=== PATIENT | female | born 1965 | race Caucasian/White ===

== ENCOUNTER → 2019-08-23 15:52 | Outpatient (CLI) | payer OTHER ==
[2015-11-15 06:03] VITALS: BMI 28.4
[~2019-08-23 15:52] MED LIST: BAYER CHEWABLE81 MG PO; GABAPENTIN100 MG PO; GLIPIZIDE10 MG PO; GLUCOPHAGE1000 MG PO; IBUPROFEN800 MG PO
== END | disposition home or self-care (01) ==
LOC: D.LABREF 15:52
PROVIDERS: ATTEND Orthopaedic Surgery
DX: M17.12 Unilateral primary osteoarthritis, left knee (principal)

== ENCOUNTER 2019-08-29 13:33 | Inpatient (IN) | payer OTHER ==
[~2019-08-29] VITALS: Ht 160 cm; Wt 75.0 kg
[2019-10-10] MEDS ORDERED: PIOGLITAZONE15 MG PO (14:41)
[2019-10-10] MEDS ORDERED: JANUVIA100 MG PO (14:42)
[2019-10-10] MEDS ORDERED: MULTI-DAY VITAM1 TAB (14:43)
[2019-10-11 11:40] LABS: APTT 24.6 SECONDS (22.8-39.4); INR 0.93 (0.85-1.17); PROTIME 12.4 SECONDS (11.6-15.0)
[2019-10-11 11:43] LABS: CALC OSMOLALITY 280 mosm/kg (275-300); CALCIUM 9.5 mg/dL (8.5-10.1); CARBON DIOXIDE 33.2 mmol/L (21.0-32.0); CHLORIDE - SERUM 101 mmol/L (98-107); CREATININE - SERUM 0.6 mg/dL (0.6-1.3); GLUCOSE 160 mg/dL (74-106); POTASSIUM - SERUM 4.9 mmol/L (3.5-5.1); SODIUM 140 mmol/L (136-145); UREA NITROGEN 11 mg/dL (7-18); eGFR NON AFRICAN AMERICAN > 90 mL/min (90-120)
[2019-10-11 11:51] LABS: BASOPHILS 0.3 % (0-2); EOSINOPHILS 3.1 % (0-7); HEMATOCRIT 37.4 % (36.0-48.0); HEMOGLOBIN 12.3 g/dL (12-16); IMMATURE GRANULOCYTES 0.4 % (0-5); LYMPHOCYTES 28.4 % (15-50); MCHC 32.9 g/dL (31.0-37.0); MCV 91.2 fL (80.0-100.0); MEAN PLATELET VOLUME 9.6 fL (7.4-10.4); MONOCYTES 7.4 % (2-11); NEUTROPHILS 60.4 % (40-80); RDW 14.4 % (11.5-14.5); WBC 6.9 10x3/uL (4.8-10.8)
[2019-10-11 11:57] LABS: PLATELET COUNT 279 10x3/uL (130-400)
[2019-10-11 12:19] LABS: APPEARANCE CLEAR (CLEAR); BILIRUBIN NEGATIVE (NEGATIVE); COLOR YELLOW (YELLOW); GLUCOSE 1000 mg/dL (NEGATIVE); KETONE NEGATIVE (NEGATIVE); NITRITE NEGATIVE (NEGATIVE); PROTEIN NEGATIVE (NEGATIVE); UROBILINOGEN NORMAL (NORMAL)
[2019-10-11 12:35] LABS: BACTERIA FEW /hpf (NEGATIVE); EPITHELIAL CELLS 0-5 /hpf (0-5); RED CELLS - URINE RARE /hpf (0-5); WHITE CELLS - URINE 0-5 /hpf (NEGATIVE)
[2019-10-16] VITALS (12 sets, daily range): BP systolic 105–148; BP diastolic 47–88; Ht 160 cm; Wt 75.0 kg
[2019-10-16] MEDS ORDERED: ULTRAM50 MG PO (06:44)
[2019-10-16 08:17] LABS: APPEARANCE CLEAR (CLEAR); COLOR YELLOW (YELLOW)
[2019-10-16 08:18] LABS: BACTERIA MODERATE /hpf (NEGATIVE); BILIRUBIN NEGATIVE (NEGATIVE); EPITHELIAL CELLS 0-5 /hpf (0-5); GLUCOSE 100 mg/dL (NEGATIVE); KETONE NEGATIVE (NEGATIVE); MUCUS <1+ /lpf (NONE SEEN); NITRITE NEGATIVE (NEGATIVE); PROTEIN NEGATIVE (NEGATIVE); RED CELLS - URINE RARE /hpf (0-5); UROBILINOGEN NORMAL (NORMAL); WHITE CELLS - URINE 0-5 /hpf (NEGATIVE)
--- NOTE | 2019-10-16 09:00 | NUR ---
0848-[facility] CAMPUSE AND ALCOHOL PREP PRIOR TO CHLORAPREP.
--- NOTE | 2019-10-16 10:08 | NUR ---
CALLED FOR POST OP XRAY. ICE APPLIED ORDERED. PT STABLE AND AWAKE READY TO GO TO HER ROOM WILL CALL REPORT AND TRANSFER.
--- NOTE | 2019-10-16 10:34 | NUR ---
PATIENT ADMITTED TO ROOM 2203. ADMISSION COMPLETE. DRSG TO LEFT KNEE C/D/I. NO C/O PAIN. BED ALARM ON. AT BEDSIDE. CALL JIMENEZ AND PERSONAL ITEMS IN REACH. WILL CONTINUE TO MONITOR.
--- NOTE | 2019-10-16 11:30 | NUR ---
POST OP VITALS REMAIN STABLE. WILL CONTINUE TO MONITOR.
--- NOTE | 2019-10-16 13:18 | NUR ---
RESTING IN BED. ASSISTED TO USE BEDPAN. POST OP VITALS REMAIN STABLE. DENIES NEEDS. AT BEDSIDE. WILL CONTINUE TO MONITOR.
--- NOTE | 2019-10-16 18:15 | NUR ---
RESTING IN BED. DENIES NEEDS. FALL PRECAUTIONS IN PLACE. BED LOW. CALL JIMENEZ AND PERSONAL ITEMS IN [facility].
--- NOTE | 2019-10-16 19:00 | NUR ---
PATIENT ALERT AND ORIENTED SITTING UP IN BED. NO ACUTE DISTRESS NOTED AT THIS TIME. PATIENT ASKED FOR A PAIN PILL, BUT HAS NO OTHER NEEDS AT THIS TIME. IV R HAND, 1/2NS @100, NO REDNESS OR SWELLING NOTED. BED RAILS X2. CALL LIGHT AND BEDSIDE TABLE WITHIN REACH.
[2019-10-17 00:56] VITALS: BP 115/61
[2019-10-17 05:46] VITALS: BP 98/56
[2019-10-17 06:38] LABS: BASOPHILS 0.1 % (0-2); EOSINOPHILS 0.4 % (0-7); HEMATOCRIT 26.3 % (36.0-48.0); HEMOGLOBIN 8.6 g/dL (12-16); IMMATURE GRANULOCYTES 0.3 % (0-5); LYMPHOCYTES 16.2 % (15-50); MCH 29.8 pg (26.0-34.0); MCHC 32.7 g/dL (31.0-37.0); MEAN PLATELET VOLUME 9.6 fL (7.4-10.4); MONOCYTES 12.8 % (2-11); NEUTROPHILS 70.2 % (40-80); RBC 2.89 10x6/uL (4.00-5.40); WBC 7.5 10x3/uL (4.8-10.8)
[2019-10-17 06:43] LABS: PLATELET COUNT 202 10x3/uL (130-400)
[2019-10-17 06:54] LABS: CALC OSMOLALITY 276 mosm/kg (275-300); CALCIUM 7.4 mg/dL (8.5-10.1); CARBON DIOXIDE 26.9 mmol/L (21.0-32.0); CHLORIDE - SERUM 100 mmol/L (98-107); CREATININE - SERUM 0.7 mg/dL (0.6-1.3); MAGNESIUM - SERUM 1.3 mg/dL (1.8-2.4); SODIUM 133 mmol/L (136-145); UREA NITROGEN 14 mg/dL (7-18); eGFR NON AFRICAN AMERICAN > 90 mL/min (90-120)
[2019-10-17 06:58] LABS: GLUCOSE 273 mg/dL (74-106)
--- NOTE | 2019-10-17 07:53 | NUR ---
ALERT AND ORIENTED. LUNGS CLEAR BILATERALLY. HEART SOUNDS S1 AND S2 HEARD IN ALL MONIQUE. BOWEL SOUNDS ACTIVE X 4. DRSG TO LEFT KNEE C/D/I. REQUESTED AND GIVEN ICE PACK FOR KNEE. USING CPM MACHINE. TO COME OFF AT 0930. IV TO RIGHT HAND PATENT WITHOUT REDNESS. DENIES NEEDS. BED LOW. FALL PRECAUTIONS IN PLACE. CALL JIMENEZ AND PERSONAL ITEMS IN REACH. WILL CONTINUE TO MONITOR.
[2019-10-17 08:30] VITALS: BP 138/59
--- NOTE | 2019-10-17 10:50 | NUR ---
SPOKE WITH DIANA EPPERSON TO GET LOW RESISTANCE SLIDING SCALE AND HUMALOG FOR PATIENT. STATES CHECK BS AC/HS. BLOOD SUGAR 390 AFTER CHECKING TWICE. 10 UNITS INSULIN GIVEN.
--- NOTE | 2019-10-17 13:47 | NUR ---
RESTING IN BED. DENIES NEEDS. WILL CONTINUE TO MONITOR.
[2019-10-17 15:06] VITALS: BP 143/63
[2019-10-17 16:45] VITALS: BP 154/63
[2019-10-17 20:00] VITALS: BP 151/66
--- NOTE | 2019-10-17 21:40 | NUR ---
TAKEN OFF CPM AT THIS TIME. ASSISTED ONTO BEDPAN. DENIES PAIN. SCD PLACED ON RLE. PLEXI BOOT PLACED TO LT FOOT. DRSG TO LT KNEE WITH SAMANTHA WRAP IS C/D/I. BED ALARM ON FOR PT SAFETY. NS @ 10 ML/HR INFUSING IN RT HAND. ALERT AND ORIENTED X4. C/O NAUSEA. SR ELEVATED X2. CL IN REACH.
--- NOTE | 2019-10-17 22:00 | NUR ---
MEDICATED WITH ZOFRAN ORDERED FOR C/O NAUSEA.
[2019-10-18] VITALS: BP 130/84
--- NOTE | 2019-10-18 03:00 | NUR ---
HAS RESTED WELL SO FAR THIS SHIFT. NO DISTRESS. CL IN REACH. BED ALARM ON FOR PT SAFETY.
[2019-10-18 04:00] VITALS: BP 129/77
--- NOTE | 2019-10-18 04:05 | NUR ---
ASSISTED ONTO BEDPAN. C/O H/A. MEDICATED WITH TORADOL. CL IN REACH.
[2019-10-18 05:15] LABS: BASOPHILS 0.1 % (0-2); EOSINOPHILS 0 % (0-7); HEMATOCRIT 26.1 % (36.0-48.0); HEMOGLOBIN 8.6 g/dL (12-16); IMMATURE GRANULOCYTES 0.4 % (0-5); LYMPHOCYTES 14.4 % (15-50); MCH 29.8 pg (26.0-34.0); MCV 90.3 fL (80.0-100.0); MEAN PLATELET VOLUME 9.9 fL (7.4-10.4); MONOCYTES 11.3 % (2-11); NEUTROPHILS 73.8 % (40-80); PLATELET COUNT 232 10x3/uL (130-400); RBC 2.89 10x6/uL (4.00-5.40); RDW 13.6 % (11.5-14.5)
[2019-10-18 05:20] LABS: CALCIUM 8.3 mg/dL (8.5-10.1); CARBON DIOXIDE 26.6 mmol/L (21.0-32.0); CHLORIDE - SERUM 96 mmol/L (98-107); GLUCOSE 231 mg/dL (74-106); MAGNESIUM - SERUM 1.4 mg/dL (1.8-2.4); POTASSIUM - SERUM 4.2 mmol/L (3.5-5.1); SODIUM 132 mmol/L (136-145)
[2019-10-18 05:21] LABS: CALC OSMOLALITY 269 mosm/kg (275-300); UREA NITROGEN 8 mg/dL (7-18)
[2019-10-18 05:22] LABS: CREATININE - SERUM 0.5 mg/dL (0.6-1.3); eGFR NON AFRICAN AMERICAN > 90 mL/min (90-120)
[2019-10-18 05:25] LABS: WBC 11.2 10x3/uL (4.8-10.8)
[2019-10-18 08:48] VITALS: BP 135/82
[2019-10-18 12:48] VITALS: BP 148/65
[2019-10-18 16:40] VITALS: BP 104/64
[2019-10-18 20:00] VITALS: BP 145/70
--- NOTE | 2019-10-18 20:00 | NUR ---
ALERT RESTING IN BED CPM IN USE, DENIES PAIN OR NEEDS AT THIS TIME, SEE SHIFT ASSESSMENT, CALL LIGHT IN REACH
[2019-10-19] VITALS: BP 146/67
[2019-10-19 04:00] VITALS: BP 135/70
[2019-10-19 06:36] LABS: BASOPHILS 0.2 % (0-2); EOSINOPHILS 0 % (0-7); IMMATURE GRANULOCYTES 0.6 % (0-5); MCH 30.1 pg (26.0-34.0); MCHC 33.3 g/dL (31.0-37.0); MCV 90.2 fL (80.0-100.0); MEAN PLATELET VOLUME 9.7 fL (7.4-10.4); MONOCYTES 10.4 % (2-11); NEUTROPHILS 76.8 % (40-80); PLATELET COUNT 252 10x3/uL (130-400); RBC 2.66 10x6/uL (4.00-5.40); RDW 13.5 % (11.5-14.5); WBC 11.8 10x3/uL (4.8-10.8)
[2019-10-19 06:51] LABS: CALC OSMOLALITY 266 mosm/kg (275-300); CALCIUM 8.6 mg/dL (8.5-10.1); CARBON DIOXIDE 31.6 mmol/L (21.0-32.0); CHLORIDE - SERUM 97 mmol/L (98-107); CREATININE - SERUM 0.5 mg/dL (0.6-1.3); MAGNESIUM - SERUM 1.5 mg/dL (1.8-2.4); POTASSIUM - SERUM 3.9 mmol/L (3.5-5.1); SODIUM 133 mmol/L (136-145); UREA NITROGEN 8 mg/dL (7-18); eGFR NON AFRICAN AMERICAN > 90 mL/min (90-120)
[2019-10-19 06:53] LABS: GLUCOSE 161 mg/dL (74-106)
--- NOTE | 2019-10-19 08:20 | OP ---
PATIENT NAME: KADY UGARTE MEDICAL RECORD: [id number] :61 LOCATION:D.MS [id number] ADMISSION DATE:10/16/19 SURGEON: CATHIE OAKLEY MD DATE OF OPERATION: 10/16/2019 PREOPERATIVE DIAGNOSIS: Degenerative arthritis, left knee. POSTOPERATIVE DIAGNOSIS: Degenerative arthritis, left knee. PROCEDURE: Left total knee arthroplasty. SURGEON: Cathie Oakley MD SPEECH WRITER: [place] [facility] INTRAOPERATIVE COMPLICATIONS: None. 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 IMPLANTS USED: Adan triathlon total knee arthroplasty, press fit a size 3 tibial baseplate, size 3 distal femur, size 3 x 11 press fit patellar component, and a size 11 tibial insert. Again, press fit. OPERATIVE SUMMARY IN DETAIL: After obtaining the appropriate preoperative orthopedic surgery consent as well as anesthetic consultation ,evaluation, and clearance, the patient was brought to the operating room and placed on the operating table in supine position. After general laryngeal mask airway was administered, tourniquet was placed in the proximal aspect of left lower extremity. Left lower extremity was prepped and draped in routine sterile fashion. At this time, the appropriate timeout was taken. Based upon the patient's unique identifiers and agreed upon by all. The leg was elevated and exsanguinated, tourniquet was inflated to 350 mmHg. Routine midline incision was taken down for paramedian arthrotomy. The patella was everted and soft tissue excision was done in the usual fashion. Distal intramedullary guide hole was created for distal femoral cuts. Having completed this, the proximal tibia was completely exposed. The residual soft tissue meniscotome were removed and proximal tibial cut was made. Having completed this, appropriate measurements were taken. Chamfer cuts made on the distal femur. Trials were put in corresponding to the above final implants, taken through range of motion and found to be stable in all planes. Distal femur and proximal tibial preparations were made for press fitting. At this point, the arthritic patellar surface was excised and again prepared for press fit of the patellar resurfacing component. The entire knee cavity was irrigated and the bone ends were dried. Final components were put into place with good fit and fill knee was taken through range of motion and found to be stable in all planes. A gram of vancomycin, a gram of tobramycin was placed into the joint. The paramedian arthrotomy was closed with #2 Ethibond by Isaiah Odom. Following this, he closed the skin with #1 Vicryl, #2 Vicryl, and skin orin. Sterile dressings were applied. Tourniquet was deflated. The patient was awakened, taken to the recovery room in stable condition. All final needle and sponge counts were correct. TRANSINT:[id number] Voice Confirmation ID: [id number] DOCUMENT ID: [id number] OPERATIVE REPORT [id number] KADY UGARTE MD, CATHIE HANSON at 0820 CC: [id number] DICTATION DATE: 10/16/19 0936 ROVING CHANGER: 10/16/19 1220 ADM IN [place] [id number] [place] [id number]
[2019-10-19 08:49] VITALS: BP 140/70
--- NOTE | 2019-10-19 09:00 | NUR ---
PT RESTING IN BED WITH CPM TO LEFT LOWER EXTREMITY. RATES PAIN 3/10 AT THIS TIME. DRESSING C/D/I TO LEFT LOWER EXTREMITY. SALINE LOC TO RIGHT HAND, SITE WITHOUT REDNESS OR EDEMA. DENIES FURTHER NEEDS AT THIS TIME. CL WITHIN REACH. ENCOURAGED TO CALL WITH NEEDS. CONTINUE POC
--- NOTE | 2019-10-19 11:58 | MORECARE ---
CASE MANAGEMENT DISCHARGE SUMMARY PATIENT: KADY UGARTE UNIT: [id number] ADM DATE: 10/16/19 AGE: 54 : 61 SEX: F ROOM/BED: D.2204 AUTHOR: JI MCQUEEN PHYSICIAN: REFERRING PHYSICIAN: CATHIE OAKLEY MD DATE OF SERVICE: 10/19/19 Discharge Plan Patient Name: KADY UGARTE [facility] [facility] 1965 Planned Disposition: Home Health Service Anticipated Discharge Date: Discharge Date: Expected LOS: Initial Reviewer: [email or web address] Initial Review Date: 10/16/2019 Generated: 10/19/19 12:57 pm Comments DCP- Discharge Planning Updated by [email or web address]: Marleen Gage on 10/19/19 7:[address] CM spoke with patient about H/H. H/H explained- Patient chose [facility]. Copy placed on chart. DCP- Discharge Planning Updated by [email or web address]: Marleen Gage on 10/18/19 2:[address] Cm spoke with patient about HH. Patient reluctant to choose facility without . Called Reynaldo () but unable to reach. Will attempt 10/19/18 for home health decision. Coverage Notice Reviewer: [id number] - Marleen Gage Notice Issued Date-Time: 10/19/2019 7:40 Notice Type: Patient Choice Letter Notice Delivered To: Patient Relationship to Patient: Precision Layout Worker Name: Delivery Method: HAND - Hand Delivered Farzana Days: Prior Verbal Notification: Recipient Understood Notice: Yes Recipient Signature: Yes Med Rec Note Co-signed by Attending: Coverage Notice Comment: patient chooses [facility] Patient Name: KADY UGARTE Page [phone] at 1158 All edits/amendments must be made on the electronic document DICTATION DATE: 10/19/19 1157 NIGHT NURSE: DAT 10/19/19 1157 RPT#: [id number] DC DATE: STATUS: ADM IN [facility] [address] [place] [address] END OF REPORT
--- NOTE | 2019-10-19 12:07 | MORECARE ---
CASE MANAGEMENT DISCHARGE SUMMARY PATIENT: KADY UGARTE UNIT: [id number] ADM DATE: 10/16/19 AGE: 54 : 61 SEX: F ROOM/BED: D.2204 AUTHOR: JI MCQUEEN PHYSICIAN: REFERRING PHYSICIAN: CATHIE OAKLEY MD DATE OF SERVICE: 10/19/19 Discharge Plan Patient Name: KADY UGARTE [facility] [facility] 1965 Planned Disposition: Home Health Service Anticipated Discharge Date: Discharge Date: Expected LOS: Initial Reviewer: [id number] Initial Review Date: 10/16/2019 Generated: 10/19/19 1:06 pm Comments DCP- Discharge Planning Updated by [email or web address]: Marleen Gage on 10/19/19 7:[address] CM spoke with patient about H/H. H/H explained- Patient chose [facility]. Copy placed on chart. DCP- Discharge Planning Updated by [email or web address]: Marleen Gage on 10/18/19 2:[address] Cm spoke with patient about HH. Patient reluctant to choose facility without . Called Reynaldo () but unable to reach. Will attempt 10/19/18 for home health decision. Coverage Notice Reviewer: [id number] - Marleen Gage Notice Issued Date-Time: 10/19/2019 7:40 Notice Type: Patient Choice Letter Notice Delivered To: Patient Relationship to Patient: Director Of Vocational Training Name: Delivery Method: HAND - Hand Delivered Farzana Days: Prior Verbal Notification: Recipient Understood Notice: Yes Recipient Signature: Yes Med Rec Note Co-signed by Attending: Coverage Notice Comment: patient chooses [facility] Last DP export: 10/19/19 10:58 a Patient Name: KADY UGARTE Page [phone] at 1207 All edits/amendments must be made on the electronic document DICTATION DATE: 10/19/19 1206 PLANT ENGINEERING SUPERVISOR: DAT 10/19/19 1206 RPT#: [id number] DC DATE: STATUS: ADM IN [facility] [address] [place] [address] END OF REPORT
--- NOTE | 2019-10-19 12:23 | MORECARE ---
CASE MANAGEMENT DISCHARGE SUMMARY PATIENT: KADY EASLEY UNIT: [id number] ADM DATE: 10/16/19 AGE: 54 : 61 SEX: F ROOM/BED: D.2204 AUTHOR: CHARISSE,DOC PHYSICIAN: REFERRING PHYSICIAN: CATHIE OAKLEY MD DATE OF SERVICE: 10/19/19 Discharge Plan Patient Name: KADY EASLEY [facility]:[place] : 1965 Planned Disposition: Home Health Service Anticipated Discharge Date: Discharge Date: Expected LOS: Initial Reviewer: [id number] Initial Review Date: 10/16/2019 Generated: 10/19/19 1:22 pm Comments DCP- Discharge Planning Updated by [id number]: Marleen Gage on 10/19/19 11:[address] Patient Name: KADY EASLEY Admission Status: Elective Accout number: [id number] Admission Date: 10-16-2019 : 1965 Admission Diagnosis: Attending: CATHIE OAKLEY Current LOS: 3 Anticipated DC Date: Planned Disposition: Home Health Service Primary Insurance: [facility] Discharge Planning Comments: CM met with patient to complete initial dc planning assessment. CM educated patient on the CM role and verbal consent given by patient to complete assessment. Patient lives at home with her spouse Reynaldo. At discharge patient plans to return home and feels this is a safe discharge. Patient states she has adequate assistance and support from her spouse to return home. CM discussed availability of home health, and patient has chosen [facility]. CM will continue to follow and will assist as needed with dc plans/needs. Mold Filler Plastic Dolls: Marleen Gage DCP- Discharge Planning Updated by [id number]: Marleen Gage on 10/19/19 7:[address] CM spoke with patient about H/H. H/H explained- Patient chose [facility]. Copy placed on chart. DCP- Discharge Planning Updated by [email or web address]: Marleen Gage on 10/18/19 2:[address] Cm spoke with patient about HH. Patient reluctant to choose facility without . Called Reynaldo () but unable to reach. Will attempt 10/19/18 for home health decision. DCPIA - Discharge Planning Initial Assessment Updated by [id number]: Marleen Gage on 10/19/19 12:19 pm * Is the patient Alert and Oriented? Yes * How many steps to enter\exit or inside your home? 1/0 * PCP Bertrand * Pharmacy [facility] * Preadmission Environment Home with Family * ADLs Independent * Equipment Cane Elevated Tol[place] Seat Glucometer Rolling Walker Walker * List name and contact numbers for known caregivers / representatives who currently or will assist patient after discharge: Reynaldo Easley [phone] * Verbal permission to speak to the caregivers and representatives has been obtained from the patient. Yes * Community resources currently utilized None * Additional services required to return to the preadmission environment? Yes * Can the patient safely return to the preadmission environment? Yes * Has this patient been hospitalized within the prior 30 days at any hospital? No Coverage Notice Reviewer: [id number] - Marleen Gage Notice Issued Date-Time: 10/19/2019 7:40 Notice Type: Patient Choice Letter Notice Delivered To: Patient Relationship to Patient: Pattern Scratcher Name: Delivery Method: HAND - Hand Delivered Farzana Days: Prior Verbal Notification: Recipient Understood Notice: Yes Recipient Signature: Yes Med Rec Note Co-signed by Attending: Coverage Notice Comment: patient chooses [facility] Last DP export: 10/19/19 11:07 a Patient Name: KADY EASLEY Page [phone] at 1223 All edits/amendments must be made on the electronic document DICTATION DATE: 10/19/19 122 ASSISTANT TODDLER TEACHER: DAT 10/19/19 1222 RPT#: [id number] DC DATE: STATUS: ADM IN [facility] [address] [place] [address] END OF REPORT
[2019-10-19 12:45] VITALS: BP 133/70
--- NOTE | 2019-10-19 13:48 | NUR ---
ONE UNIT PRBC INITIATED PER MD ORDERS. PT LILLY WELL. RESP EVEN AND UNLABORED
--- NOTE | 2019-10-19 15:47 | MORECARE ---
CASE MANAGEMENT DISCHARGE SUMMARY PATIENT: KADY EASLEY UNIT: [id number] ADM DATE: 10/16/19 AGE: 54 : 61 SEX: F ROOM/BED: D.2204 AUTHOR: CHARISSE,DOC PHYSICIAN: REFERRING PHYSICIAN: CATHIE OAKLEY MD DATE OF SERVICE: 10/19/19 Discharge Plan Patient Name: KADY EASLEY Facility[facility]:[place] : 1965 Planned Disposition: Home Health Service Anticipated Discharge Date: Discharge Date: Expected LOS: Initial Reviewer: [id number] Initial Review Date: 10/16/2019 Generated: 10/19/19 4:47 pm Comments DCP- Discharge Planning Updated by [email or web address]: Marleen Gage on 10/19/19 11:[address] Patient Name: KADY EASLEY Admission Status: Elective Accout number: [id number] Admission Date: 10-16-2019 : 1965 Admission Diagnosis: Attending: CATHIE OAKLEY Current LOS: 3 Anticipated DC Date: Planned Disposition: Home Health Service Primary Insurance: [facility] Discharge Planning Comments: CM met with patient to complete initial dc planning assessment. CM educated patient on the CM role and verbal consent given by patient to complete assessment. Patient lives at home with her spouse Reynaldo. At discharge patient plans to return home and feels this is a safe discharge. Patient states she has adequate assistance and support from her spouse to return home. CM discussed availability of home health, and patient has chosen [facility]. CM will continue to follow and will assist as needed with dc plans/needs. Filling Machine Set Up Mechanic: Marleen Gage DCP- Discharge Planning Updated by [email or web address]: Marleen Gage on 10/19/19 7:[address] CM spoke with patient about H/H. H/H explained- Patient chose [facility]. Copy placed on chart. DCP- Discharge Planning Updated by [email or web address]: Marleen Gage on 10/18/19 2:[address] Cm spoke with patient about HH. Patient reluctant to choose facility without . Called Reynaldo () but unable to reach. Will attempt 10/19/18 for home health decision. DCPIA - Discharge Planning Initial Assessment Updated by [email or web address]: Marleen Gage on 10/19/19 12:19 pm * Is the patient Alert and Oriented? Yes * How many steps to enter\exit or inside your home? 1/0 * PCP Bertrand * Pharmacy [facility] * Preadmission Environment Home with Family * ADLs Independent * Equipment Cane Elevated [place] Seat Glucometer Rolling Walker Walker * List name and contact numbers for known caregivers / representatives who currently or will assist patient after discharge: Reynaldo Easley [phone] * Verbal permission to speak to the caregivers and representatives has been obtained from the patient. Yes * Community resources currently utilized None * Additional services required to return to the preadmission environment? Yes * Can the patient safely return to the preadmission environment? Yes * Has this patient been hospitalized within the prior 30 days at any hospital? No External Providers External Provider: [facility] Next Contact Date: Service Request Date: Service Type: Resolution: Reviewer: Comments: Coverage Notice Reviewer: [id number] - Marleen Gage Notice Issued Date-Time: 10/19/2019 7:40 Notice Type: Patient Choice Letter Notice Delivered To: Patient Relationship to Patient: Toeing Stockings Name: Delivery Method: HAND - Hand Delivered Farzana Days: Prior Verbal Notification: Recipient Understood Notice: Yes Recipient Signature: Yes Med Rec Note Co-signed by Attending: Coverage Notice Comment: [facility] Last DP export: 10/19/19 11:23 a Patient Name: KADY EASLEY Page 11234 at 1547 All edits/amendments must be made on the electronic document DICTATION DATE: 10/19/19 1547 COMMERCIAL CONSTRUCTION ESTIMATOR: DAT 10/19/19 1547 RPT#: [id number] DC DATE: STATUS: ADM IN [facility] [address] [place] [address] END OF REPORT
[2019-10-19 20:00] VITALS: BP 147/66
--- NOTE | 2019-10-19 20:00 | NUR ---
ALERT RESTING IN BED, CPM IN USE, DENIES PAIN OR NEEDS AT THIS TIME, SEE SHIFT ASSESSMENT, CAll light in reach
[2019-10-20 04:00] VITALS: BP 110/74
[2019-10-20 05:39] LABS: BASOPHILS 0.1 % (0-2); EOSINOPHILS 0.5 % (0-7); HEMOGLOBIN 9.3 g/dL (12-16); IMMATURE GRANULOCYTES 0.8 % (0-5); LYMPHOCYTES 18.3 % (15-50); MCH 29.9 pg (26.0-34.0); MCHC 33.2 g/dL (31.0-37.0); MEAN PLATELET VOLUME 9.5 fL (7.4-10.4); MONOCYTES 9.5 % (2-11); NEUTROPHILS 70.8 % (40-80); RBC 3.11 10x6/uL (4.00-5.40); RDW 13.9 % (11.5-14.5); WBC 10.3 10x3/uL (4.8-10.8)
[2019-10-20 05:52] LABS: PLATELET COUNT 327 10x3/uL (130-400)
[2019-10-20 05:59] LABS: CALC OSMOLALITY 273 mosm/kg (275-300); CALCIUM 8.5 mg/dL (8.5-10.1); CARBON DIOXIDE 32.1 mmol/L (21.0-32.0); CHLORIDE - SERUM 98 mmol/L (98-107); CREATININE - SERUM 0.7 mg/dL (0.6-1.3); GLUCOSE 190 mg/dL (74-106); MAGNESIUM - SERUM 1.6 mg/dL (1.8-2.4); SODIUM 135 mmol/L (136-145); UREA NITROGEN 10 mg/dL (7-18); eGFR NON AFRICAN AMERICAN > 90 mL/min (90-120)
--- NOTE | 2019-10-20 08:00 | NUR ---
ALERT AND ORIENTED X4 DRESSING INTACT TO LLE WITH PEDAL PULSES NOTED W/O EDEMA. CPM REMOVED AT APPROPRIATE TIME. DENEIS ANY PAIN OR DISCOMFORT WITH RESP EVEN AND UNLABORED.
[2019-10-20] MEDS ORDERED: ELIQUIS2.5 MG PO (08:41)
[2019-10-20] MEDS ORDERED: HYDROCODON-ACE1 EA10 PO (08:42)
[2019-10-20 09:16] VITALS: BP 128/64
--- NOTE | 2019-10-20 10:35 | NUR ---
IV DISCONTINUED WITH ACEWRAP AND COTTON DRESSING REVOVED AQUACELL DRESSING INTACT. VERBQALIZED UNDERSTANDING OF DISCHARGE INSTRUCTIONS AND STABLE AT TIME OF DEPARTURE UNDER CARE OF .
--- NOTE | 2019-10-20 11:49 | MORECARE ---
CASE MANAGEMENT DISCHARGE SUMMARY PATIENT: KADY EASLEY UNIT: [id number] ADM DATE: 10/16/19 AGE: 54 : 61 SEX: F ROOM/BED: D.2204 AUTHOR: CHARISSE,DOC PHYSICIAN: REFERRING PHYSICIAN: CATHIE OAKLEY MD DATE OF SERVICE: 10/20/19 Discharge Plan Patient Name: KADY EASLEY Facility: [facility]:[place] : 1965 Planned Disposition: Home Health Service Anticipated Discharge Date: Discharge Date: 10/20/2019 Expected LOS: Initial Reviewer: [email or web address] Initial Review Date: 10/16/2019 Generated: 10/20/19 12:48 pm Comments DCP- Discharge Planning Updated by [email or web address]: Luli Palma on 10/20/19 10:[address] PATIENT DISCHARGED HOME TODAY WITH [facility]. I HAVE FAXED CLINICALS TO [facility] AND NOTIFIED LEANNA. DCP- Discharge Planning Updated by [email or web address]: Marleen Gage on 10/19/19 11:[address] Patient Name: KADY EASLEY Admission Status: Elective Accout number: [id number] Admission Date: 10-16-2019 : 1965 Admission Diagnosis: Attending: CATHIE OAKLEY Current LOS: 3 Anticipated DC Date: Planned Disposition: Home Health Service Primary Insurance: [facility] Discharge Planning Comments: CM met with patient to complete initial dc planning assessment. CM educated patient on the CM role and verbal consent given by patient to complete assessment. Patient lives at home with her spouse Reynaldo. At discharge patient plans to return home and feels this is a safe discharge. Patient states she has adequate assistance and support from her spouse to return home. CM discussed availability of home health, and patient has chosen [facility]. CM will continue to follow and will assist as needed with dc plans/needs. Sucker Machine Operator: Marleen Gage DCP- Discharge Planning Updated by [id number]: Marleen Gage on 10/19/19 7:[address] CM spoke with patient about H/H. H/H explained- Patient chose [facility]. Copy placed on chart. DCP- Discharge Planning Updated by [email or web address]: Marleen Gage on 10/18/19 2:[address] Cm spoke with patient about HH. Patient reluctant to choose facility without . Called Reynaldo () but unable to reach. Will attempt 10/19/18 for home health decision. DCPIA - Discharge Planning Initial Assessment Updated by [email or web address]: Marelen Gage on 10/19/19 12:19 pm * Is the patient Alert and Oriented? Yes * How many steps to enter\exit or inside your home? 1/0 * PCP Bertrand * [facility] * Preadmission Environment Home with Family * ADLs Independent * Equipment Cane Elevated [place] Seat Glucometer Rolling Walker Walker * List name and contact numbers for known caregivers / representatives who currently or will assist patient after discharge: Reynaldo Easley [phone] * Verbal permission to speak to the caregivers and representatives has been obtained from the patient. Yes * Community resources currently utilized None * Additional services required to return to the preadmission environment? Yes * Can the patient safely return to the preadmission environment? Yes * Has this patient been hospitalized within the prior 30 days at any hospital? No Coverage Notice Reviewer: [id number] - Marleen Gage Notice Issued Date-Time: 10/19/2019 7:40 Notice Type: Patient Choice Letter Notice Delivered To: Patient Relationship to Patient: Granite Fabricator Name: Delivery Method: HAND - Hand Delivered Farzana Days: Prior Verbal Notification: Recipient Understood Notice: Yes Recipient Signature: Yes Med Rec Note Co-signed by Attending: Coverage Notice Comment: patient chooses [facility] Last DP export: 10/19/19 2:47 p Patient Name: KADY EASLEY Page [phone] at 1149 All edits/amendments must be made on the electronic document DICTATION DATE: 10/20/19 1148 MUCK MINER: DAT 10/20/19 1148 RPT#: [id number] DC DATE:10/20/19 STATUS: DIS IN [facility] [address] [place] [address] END OF REPORT
--- NOTE | 2019-10-20 16:30 | MORECARE ---
CASE MANAGEMENT DISCHARGE SUMMARY PATIENT: KADY EASLEY UNIT: [id number] ADM DATE: 10/16/19 AGE: 54 : 61 SEX: F ROOM/BED: D.2204 AUTHOR: CHARISSE,DOC PHYSICIAN: REFERRING PHYSICIAN: CATHIE OAKLEY MD DATE OF SERVICE: 10/20/19 Discharge Plan Patient Name: KADY EASLEY Facility: [facility]:[place] : 1965 Planned Disposition: Home Health Service Anticipated Discharge Date: Discharge Date: 10/20/2019 Expected LOS: Initial Reviewer: [email or web address] Initial Review Date: 10/16/2019 Generated: 10/20/19 5:29 pm Comments DCP- Discharge Planning Updated by [email or web address]: Luli Palma on 10/20/19 10:[address] PATIENT DISCHARGED HOME TODAY WITH [facility]. I HAVE FAXED CLINICALS TO [facility] AND NOTIFIED LEANNA. DCP- Discharge Planning Updated by [id number]: Marleen Gage on 10/19/19 11:[address] Patient Name: KADY EASLEY Admission Status: Elective Accout number: [id number] Admission Date: 10-16-2019 : 1965 Admission Diagnosis: Attending: CATHIE OAKLEY Current LOS: 3 Anticipated DC Date: Planned Disposition: Home Health Service Primary Insurance: [facility] Discharge Planning Comments: CM met with patient to complete initial dc planning assessment. CM educated patient on the CM role and verbal consent given by patient to complete assessment. Patient lives at home with her spouse Reynaldo. At discharge patient plans to return home and feels this is a safe discharge. Patient states she has adequate assistance and support from her spouse to return home. CM discussed availability of home health, and patient has chosen [facility]. CM will continue to follow and will assist as needed with dc plans/needs. Learning And Development Administrator: Marleen Gage DCP- Discharge Planning Updated by [id number]: Marleen Gage on 10/19/19 7:[address] CM spoke with patient about H/H. H/H explained- Patient chose [facility]. Copy placed on chart. DCP- Discharge Planning Updated by [id number]: Marleen Gage on 10/18/19 2:[address] Cm spoke with patient about HH. Patient reluctant to choose facility without . Called Reynaldo () but unable to reach. Will attempt 10/19/18 for home health decision. DCPIA - Discharge Planning Initial Assessment Updated by [id number]: Marleen Gage on 10/19/19 12:19 pm * Is the patient Alert and Oriented? Yes * How many steps to enter\exit or inside your home? 1/0 * PCP Bertrand * Pharmacy [facility] * Preadmission Environment Home with Family * ADLs Independent * Equipment Cane Elevated Tol[place] Seat Glucometer Rolling Walker Walker * List name and contact numbers for known caregivers / representatives who currently or will assist patient after discharge: Reynaldo Easley [phone] * Verbal permission to speak to the caregivers and representatives has been obtained from the patient. Yes * Community resources currently utilized None * Additional services required to return to the preadmission environment? Yes * Can the patient safely return to the preadmission environment? Yes * Has this patient been hospitalized within the prior 30 days at any hospital? No External Providers [facility] Next Contact Date: Service Request Date: Service Type: Resolution: Reviewer: Comments: Coverage Notice Reviewer: [id number] - Marleen Gage Notice Issued Date-Time: 10/19/2019 7:40 Notice Type: Patient Choice Letter Notice Delivered To: Patient Relationship to Patient: Registered Public Health Nurse Name: Delivery Method: HAND - Hand Delivered Farzana Days: Prior Verbal Notification: Recipient Understood Notice: Yes Recipient Signature: Yes Med Rec Note Co-signed by Attending: Coverage Notice Comment: patient chooses [facility] Last DP export: 10/20/19 10:49 a Patient Name: KADY EASLEY Page 50884 at 1630 All edits/amendments must be made on the electronic document DICTATION DATE: 10/20/191628 WELLNESS PROGRAM COORDINATOR: DTA 10/20/191628 RPT#: [id number] DC DATE:10/20/19 STATUS: DIS IN [facility] [address] [place] [address] END OF REPORT
--- NOTE | 2019-10-20 16:39 | MORECARE ---
CASE MANAGEMENT DISCHARGE SUMMARY PATIENT: KADY EASLEY UNIT: [id number] ADM DATE: 10/16/19 AGE: 54 : 61 SEX: F ROOM/BED: D.2204 AUTHOR: CHARISSE,DOC PHYSICIAN: REFERRING PHYSICIAN: CATHIE OAKLEY MD DATE OF SERVICE: 10/20/19 Discharge Plan Patient Name: KADY EASLEY Facility: [facility]:[place] : 1965 Planned Disposition: Home Health Service Anticipated Discharge Date: Discharge Date: 10/20/2019 Expected LOS: Initial Reviewer: [email or web address] Initial Review Date: 10/16/2019 Generated: 10/20/19 5:38 pm Comments DCP- Discharge Planning Updated by [id number]: Marleen Gage on 10/20/19 3:[address] [facility] is not in network. Sent referral to [facility]. Called patient to update POC. DCP- Discharge Planning Updated by [email or web address]: Luli Palma on 10/20/19 10:[address] PATIENT DISCHARGED HOME TODAY WITH [facility]. I HAVE FAXED CLINICALS TO [facility] AND NOTIFIED LEANNA. DCP- Discharge Planning Updated by [email or web address]: Marleen Gage on 10/19/19 11:[address] Patient Name: KADY EASLEY Admission Status: Elective Accout number: [id number] Admission Date: 10-16-2019 : 1965 Admission Diagnosis: Attending: CATHIE OAKLEY Current LOS: 3 Anticipated DC Date: Planned Disposition: Home Health Service Primary Insurance: [facility] Discharge Planning Comments: CM met with patient to complete initial dc planning assessment. CM educated patient on the CM role and verbal consent given by patient to complete assessment. Patient lives at home with her spouse Reynaldo. At discharge patient plans to return home and feels this is a safe discharge. Patient states she has adequate assistance and support from her spouse to return home. CM discussed availability of home health, and patient has chosen [facility]. CM will continue to follow and will assist as needed with dc plans/needs. Silverware Supervisor: Marleen Gage DCP- Discharge Planning Updated by [id number]: Marleen Gage on 10/19/19 7:[address] CM spoke with patient about H/H. H/H explained- Patient chose [facility]. Copy placed on chart. DCP- Discharge Planning Updated by [id number]: Marleen Gage on 10/18/19 2:[address] Cm spoke with patient about HH. Patient reluctant to choose facility without . Called Reynaldo () but unable to reach. Will attempt 10/19/18 for home health decision. DCPIA - Discharge Planning Initial Assessment Updated by [email or web address]: Marleen Gage on 10/19/19 12:19 pm * Is the patient Alert and Oriented? Yes * How many steps to enter\exit or inside your home? 1/0 * PCP Bertrand * Pharmacy [facility] * Preadmission Environment Home with Family * ADLs Independent * Equipment Cane Elevated [place] Seat Glucometer Rolling Walker Walker * List name and contact numbers for known caregivers / representatives who currently or will assist patient after discharge: Reynaldo Easley [phone] * Verbal permission to speak to the caregivers and representatives has been obtained from the patient. Yes * Community resources currently utilized None * Additional services required to return to the preadmission environment? Yes * Can the patient safely return to the preadmission environment? Yes * Has this patient been hospitalized within the prior 30 days at any hospital? No Coverage Notice Reviewer: [id number] - Marleen Gage Notice Issued Date-Time: 10/19/2019 7:40 Notice Type: Patient Choice Letter Notice Delivered To: Patient Relationship to Patient: District Traffic Chief Name: Delivery Method: HAND - Hand Delivered Farzana Days: Prior Verbal Notification: Recipient Understood Notice: Yes Recipient Signature: Yes Med Rec Note Co-signed by Attending: Coverage Notice Comment: patient chooses [facility] Last DP export: 10/20/19 3:30 p Patient Name: KADY EASLEY Page [id number] at 1639 All edits/amendments must be made on the electronic document DICTATION DATE: 10/20/191637 RAYMOND MILL OPERATOR: DAT 10/20/19 163 RPT#: [id number] DC DATE:10/20/19 STATUS: DIS IN [facility] [address] [place] [address] END OF REPORT
--- NOTE | 2019-10-20 18:20 | MORECARE ---
CASE MANAGEMENT DISCHARGE SUMMARY PATIENT: KADY EASLEY UNIT: [id number] ADM DATE: 10/16/19 AGE: 54 : 61 SEX: F ROOM/BED: D.2204 AUTHOR: CHARISSE,DOC PHYSICIAN: REFERRING PHYSICIAN: CATHIE OAKLEY MD DATE OF SERVICE: 10/20/19 Discharge Plan Patient Name: KADY EASLEY Facility: [facility]:[place] : 1965 Planned Disposition: Home Health Service Anticipated Discharge Date: Discharge Date: 10/20/2019 Expected LOS: Initial Reviewer: [email or web address] Initial Review Date: 10/16/2019 Generated: 10/20/19 7:19 pm Comments DCP- Discharge Planning Updated by [email or web address]: Marleen Gage on 10/20/19 3:[address] [facility] is not in network. Sent referral to [facility]. Called patient to update POC. DCP- Discharge Planning Updated by [email or web address]: Luli Palma on 10/20/19 10:[address] PATIENT [facility]CHARGED HOME [facility]. I HAVE FAXED CLINICALS TO [facility] AND NOTIFIED LEANNA. DCP- Discharge Planning Updated by [email or web address]: Marleen Gage on 10/19/19 11:[address] Patient Name: KADY EASLEY Admission Status: Elective Accout number: [id number] Admission Date: 10-16-2019 : 1965 Admission Diagnosis: Attending: CATHIE OAKLEY Current LOS: 3 Anticipated DC Date: Planned Disposition: Home Health Service Primary Insurance: [facility] Discharge Planning Comments: CM met with patient to complete initial dc planning assessment. CM educated patient on the CM role and verbal consent given by patient to complete assessment. Patient lives at home with her spouse Reynaldo. At discharge patient plans to return home and feels this is a safe discharge. Patient states she has adequate assistance and support from her spouse to return home. CM discussed availability of home health, and patient has chosen [facility]. CM will continue to follow and will assist as needed with dc plans/needs. Steam Conditioner Filling: Marleen Gage DCP- Discharge Planning Updated by [email or web address]: Marleen Gage on 10/19/19 7:[address] CM spoke with patient about H/H. H/H explained- Patient chose [facility]. Copy placed on chart. DCP- Discharge Planning Updated by [id number]: Marleen Gage on 10/18/19 2:[address] Cm spoke with patient about HH. Patient reluctant to choose facility without . Called Reynaldo () but unable to reach. Will attempt 10/19/18 for home health decision. DCPIA - Discharge Planning Initial Assessment Updated by [email or web address]: Marleen Gage on 10/19/19 12:19 pm * Is the patient Alert and Oriented? Yes * How many steps to enter\exit or inside your home? 1/0 * PCP Bertrand * Pharmacy [facility] * Preadmission Environment Home with Family * ADLs Independent * Equipment Cane Elevated [place] Seat Glucometer Rolling Walker Walker * List name and contact numbers for known caregivers / representatives who currently or will assist patient after discharge: Reynaldo Easley [phone] * Verbal permission to speak to the caregivers and representatives has been obtained from the patient. Yes * Community resources currently utilized None * Additional services required to return to the preadmission environment? Yes * Can the patient safely return to the preadmission environment? Yes * Has this patient been hospitalized within the prior 30 days at any hospital? No Coverage Notice Reviewer: [id number] - Marleen Gage Notice Issued Date-Time: 10/19/2019 7:40 Notice Type: Patient Choice Letter Notice Delivered To: Patient Relationship to Patient: Cvicu Rn Name: Delivery Method: HAND - Hand Delivered Farzana Days: Prior Verbal Notification: Recipient Understood Notice: Yes Recipient Signature: Yes Med Rec Note Co-signed by Attending: Coverage Notice Comment: patient chooses [facility] Last DP export: 10/20/19 3:39 p Patient Name: KADY EASLEY Page 25182 at 1820 All edits/amendments must be made on the electronic document DICTATION DATE: 10/20/191818 ICE GUARD SKATING RINK: DAT 10/20/191818 RPT#: [id number] DC DATE:10/20/19 STATUS: DIS IN [facility] [address] [place] [address] END OF REPORT
== END 2019-10-20 10:35 | disposition home health service (06) | DRG 470 ==
LOC: D.SDCHOLD 10-11 10:00 → D.MS 10-16 06:22 → D.SDCHOLD 10-16 08:30 → D.MS 10-16 10:06
PROVIDERS: Family Medicine; ADMIT Orthopaedic Surgery; ATTEND Orthopaedic Surgery
PROC: 0SRD0J9 Replacement of Left Knee Joint with Synthetic Substitute, Cemented, Open Approach (ICD-10-PCS; principal; 2019-10-16 08:30)
DX: M17.12 Unilateral primary osteoarthritis, left knee (principal); D62 Acute posthemorrhagic anemia; E87.1 Hypo-osmolality and hyponatremia; E11.40 Type 2 diabetes mellitus with diabetic neuropathy, unspecified; I10 Essential (primary) hypertension; E11.65 Type 2 diabetes mellitus with hyperglycemia

== ENCOUNTER → 2020-02-05 22:00 | Outpatient (CLI) | payer OTHER ==
[2019-10-16 10:28] VITALS: BMI 29.2
[~2020-02-05 22:00] MED LIST changes: +ELIQUIS2.5 MG PO; +HYDROCODON-ACE1 EA10 PO; +JANUVIA100 MG PO; +MULTI-DAY VITAM1 TAB; +PIOGLITAZONE15 MG PO; +ULTRAM50 MG PO
== END | disposition home or self-care (01) ==
LOC: D.MAMMO 01-15 10:30
PROVIDERS: ATTEND Family Medicine
DX: Z12.31 Encounter for screening mammogram for malignant neoplasm of breast (principal)

== ENCOUNTER → 2020-06-05 19:48 | Outpatient (CLI) | payer OTHER ==
[2019-10-16 10:28] VITALS: BMI 29.2
== END | disposition home or self-care (01) ==
LOC: D.LABREF 19:48
PROVIDERS: ATTEND Clinical Nurse Specialist Family Health
DX: E11.9 Type 2 diabetes mellitus without complications (principal); M25.562 Pain in left knee

== ENCOUNTER 2020-06-24 11:16 | Inpatient (IN) | payer OTHER ==
[~2020-06-24] VITALS: Ht 160 cm; Wt 72.7 kg
[2020-06-25] MEDS ORDERED: CRESTOR10 MG PO (10:06)
[2020-06-25] MEDS ORDERED: IBUPROFEN800 MG PO (10:06)
[2020-06-25] MEDS ORDERED: GLUCOPHAGE500 MG PO (10:15)
[2020-06-26 10:01] LABS: BASOPHILS 0.5 % (0-2); EOSINOPHILS 5.4 % (0-7); HEMOGLOBIN 12.6 g/dL (12-16); IMMATURE GRANULOCYTES 0.3 % (0-5); LYMPHOCYTES 27.5 % (15-50); MCH 29.6 pg (26.0-34.0); MCHC 33.2 g/dL (31.0-37.0); MCV 89.4 fL (80.0-100.0); MEAN PLATELET VOLUME 9.8 fL (7.4-10.4); MONOCYTES 7.5 % (2-11); NEUTROPHILS 58.8 % (40-80); PLATELET COUNT 292 10x3/uL (130-400); RBC 4.25 10x6/uL (4.00-5.40); RDW 13.7 % (11.5-14.5); WBC 5.9 10x3/uL (4.8-10.8)
[2020-06-26 10:09] LABS: BILIRUBIN NEGATIVE (NEGATIVE); KETONE NEGATIVE (NEGATIVE); NITRITE NEGATIVE (NEGATIVE); UROBILINOGEN NORMAL mg/dL (< 2)
[2020-06-26 10:13] LABS: CALC OSMOLALITY 282 mosm/kg (275-300); CALCIUM 9.2 mg/dL (8.5-10.1); CARBON DIOXIDE 28.7 mmol/L (21.0-32.0); CHLORIDE - SERUM 100 mmol/L (98-107); CREATININE - SERUM 0.7 mg/dL (0.6-1.3); POTASSIUM - SERUM 4.6 mmol/L (3.5-5.1); SODIUM 135 mmol/L (136-145); UREA NITROGEN 16 mg/dL (7-18); eGFR NON AFRICAN AMERICAN > 90 mL/min (90-120)
[2020-06-26 10:14] LABS: APTT 21.9 SECONDS (22.8-39.4); GLUCOSE 307 mg/dL (74-106); INR 0.93 (0.85-1.17); PROTIME 12.4 SECONDS (11.6-15.0)
[2020-07-01] VITALS (13 sets, daily range): BP systolic 97–137; BP diastolic 48–71; Ht 160 cm; Wt 72.7 kg
--- NOTE | 2020-07-01 10:42 | NUR ---
THROUGH TRAFFIC KEPT TO A MINIMUM.HIBACLENS AND ALCOHOL USED TO CLEAN BEFORE PREPPING. STERILE GOWNED AND GLOVES TO PREP WITH CHLORAPREP.
--- NOTE | 2020-07-01 12:05 | NUR ---
RECEIVED TO ROOM 1209 VIA BED FROM PACU. A/O X3. DENIES PAIN. ALERT AND ORIENTED. DRESSING TO LEFT KNEE DRY AND INTACT.
--- NOTE | 2020-07-01 12:30 | NUR ---
ATE ALL OF LUNCH TRAY. DENIES NEEDS. AT BEDSIDE. VSS.
--- NOTE | 2020-07-01 15:00 | NUR ---
RESTING QUIETLY IN BED WATCHING A MOVIE WITH . DENIES NEEDS. VSS.
--- NOTE | 2020-07-01 18:22 | NUR ---
ATE ALL OF SUPPER. NO CHANGES NOTED. DENIES NEEDS.
--- NOTE | 2020-07-01 19:04 | NUR ---
ASSISTED PATIENT ON AND OFF BEDPAN. PATIENT VOIDED. VSS. PLACED ICE TO PATIENT'S LEFT KNEE. PATIENT DENIES OTHER NEEDS AT THIS TIME. BED IN LOWEST POSITION AND CALL LIGHT WITHIN REACH. ENCOURAGED THE PATIENT TO CALL IF SHE HAS NEEDS. WILL CONTINUE TO MONITOR.
--- NOTE | 2020-07-01 21:13 | NUR ---
ADMINISTERED MEDS PER ORDERS. PATIENT DENIES OTHER NEEDS AT THIS TIME. WILL CONTINUE TO MONITOR.
[2020-07-02 00:09] VITALS: BP 103/57
[2020-07-02 04:17] VITALS: BP 101/50
[2020-07-02 06:15] LABS: HEMATOCRIT 34.3 % (36.0-48.0); HEMOGLOBIN 10.9 g/dL (12-16); MCH 29.3 pg (26.0-34.0); MCHC 31.8 g/dL (31.0-37.0); MCV 92.2 fL (80.0-100.0); MEAN PLATELET VOLUME 10.2 fL (7.4-10.4); RBC 3.72 10x6/uL (4.00-5.40); RDW 14.2 % (11.5-14.5)
[2020-07-02 07:23] VITALS: BP 135/63
--- NOTE | 2020-07-02 07:30 | NUR ---
AWAKE AND ALERT. ORIENTED X3. C/O PAIN LEVEL "CRYING" AT THIS TIME. BP UP TO 107. GIVEN ONE HYDROCODONE PO FOR PAIN WILL MONITOR. LUNGS ARE CLEAR BILATERALLY, NO COUGH NOTED. REPORTED USING IS INSTRUCTED. SKIN IS INTACT WITHOUT REDNESS EXCEPT INCISION TO LEFT KNEE WHICH HAS A DRY INTACT DRESSING IN PLACE. IV TO RIGHT FOREARM IS PATENT WITHOUT REDNESS AT INSERTION SITE. DENIES NEEDS.
--- NOTE | 2020-07-02 07:46 | NUR ---
AWAKE AND ALERT. ORIENTED X3. ASSISTED WITH BED CELIS PER STAFF. VOIDED A LARGE VOLUMN OF CLEAR YELLOW URINE. REQUESTED AND GIVEN ONE HYDROCODONE PO FOR C/O LEFT KNEE PAIN LEVEL 8. WILL MONITOR. LUNGS ARE CLEAR BUT DIMINISHED THROUGHOUT LUNG MONIQUE. NO COUGH NOTED. REPORTED USED IS INSTRUCTED. IV TO RIGHT FOREARM IS PATENT WITHOUT REDNESS AT INSERTION SITE. DENIES NEEDS.
[2020-07-02 08:11] LABS: CALC OSMOLALITY 286 mosm/kg (275-300); CALCIUM 8.5 mg/dL (8.5-10.1); CHLORIDE - SERUM 104 mmol/L (98-107); CREATININE - SERUM 0.8 mg/dL (0.6-1.3); POTASSIUM - SERUM 4.3 mmol/L (3.5-5.1); SODIUM 140 mmol/L (136-145); UREA NITROGEN 17 mg/dL (7-18); eGFR NON AFRICAN AMERICAN 78 mL/min (90-120)
[2020-07-02 08:16] LABS: GLUCOSE 205 mg/dL (74-106)
--- NOTE | 2020-07-02 11:05 | NUR ---
REQUESTED AND GIVEN ONE HYDROCODONE PO FOR C/O LEFT KNEE PAIN LEVEL 8. WILL MONITOR.
[2020-07-02 11:20] VITALS: BP 132/59
[2020-07-02] MEDS ORDERED: ELIQUIS2.5 MG PO (12:39)
[2020-07-02] MEDS ORDERED: HYDROCODON-ACE1 EA10 PO (12:41)
--- NOTE | 2020-07-02 13:00 | NUR ---
ATE ALMOST ALL OF LUNCH. REPORTS PAIN IMPROVED WITH HYDROCODONE.
--- NOTE | 2020-07-02 14:15 | NUR ---
SPOKE WITH BRUNO TRASH COLLECTOR. SHE STATED SHE HAD TALKED WITH THE PATIENT OVER THE PHONE AND THEY HAD AGREED TO USE [facility] AND SHE WOULD ARRANGE IT/
--- NOTE | 2020-07-02 14:27 | MORECARE ---
CASE MANAGEMENT DISCHARGE SUMMARY PATIENT: KADY UGARTE UNIT: [id number] ADM DATE: 07/01/20 AGE: 54 : 61 SEX: F ROOM/BED: D.1209 AUTHOR: CHARISSE,DOC PHYSICIAN: REFERRING PHYSICIAN: CATHIE OAKLEY MD DATE OF SERVICE: 07/02/20 Discharge Plan Patient Name: KADY UGARTE Facility: [facility]:[place] : 1965 Planned Disposition: Home with Home Health Anticipated Discharge Date: Discharge Date: Expected LOS: Initial Reviewer: [email or web address] Initial Review Date: 07/01/2020 Generated: 07/02/20 3:26 pm Comments DCP- Discharge Planning Updated by [email or web address]: Luli Palma on 07/02/20 1:[address] Patient Name: KADY UGARTE Admission Status: Elective Accout number: [id number] Admission Date: 07-01-2020 : 1965 Admission Diagnosis:PAIN DUE TO INTERNAL ORTHOPEDIC PROSTH DEV/GRFT, INIT Attending: CATHIE OAKLEY Current LOS: 1 Anticipated DC Date: Planned Disposition: Home with Home Health Primary Insurance: [facility] Discharge Planning Comments: CM met with patient to complete initial dc planning assessment. CM educated patient on the CM role and verbal consent given by patient to complete assessment. Patient lives at home with where she is independent with her care. At discharge patient plans to return home and feels this is a safe discharge. Reynaldo will be her auto transport driver home today. CM discussed availability of home health, rehab services, and medical equipment. She stated that she has used [facility] in the past and would like to use them again. (PT DAVE) She has all of her DME. I will send clinical over to [facility] . Patient denied known discharge needs at this time. CM will continue to follow and will assist as needed with dc plans/needs. Rehabilitation Technician: Luli Palma DCPIA - Discharge Planning Initial Assessment Updated by [email or web address]: Luli Palma on 07/02/20 2:07 pm * Is the patient Alert and Oriented? Yes * How many steps to enter\exit or inside your home? RAMP * PCP SEARS * Pharmacy [facility] * Preadmission Environment Home with Family * ADLs Independent * Equipment Bedside Commode Cane Walker * List name and contact numbers for known caregivers / representatives who currently or will assist patient after discharge: REYNALDO UGARTE [phone] * Verbal permission to speak to the caregivers and representatives has been obtained from the patient. N/A * Community resources currently utilized None * Additional services required to return to the preadmission environment? Yes * Can the patient safely return to the preadmission environment? Yes * Has this patient been hospitalized within the prior 30 days at any hospital? No External Providers [facility] Next Contact Date: Service Request Date: Service Type: Resolution: Reviewer: Comments: Coverage Notice Reviewer: [id number] Sarah Palma Notice Issued Date-Time: 07/02/2020 14:10 Notice Type: Patient Choice Letter Notice Delivered To: Patient Relationship to Patient: Rotating Field Assembler Name: Delivery Method: PHONE - Phone Farzana Days: Prior Verbal Notification: Yes Recipient Understood Notice: Recipient Signature: Med Rec Note Co-signed by Attending: Coverage Notice Comment: jose raul with pic[employer] via phone Patient Name: KADY UGARTE Page 41489 at 1427 All edits/amendments must be made on the electronic document DICTATION DATE: 07/02/201425 PLANT PHYSIOLOGIST: DAT 07/02/201425 RPT#: [id number] DC DATE: STATUS: ADM IN [facility] [address] [place] [address] END OF REPORT
--- NOTE | 2020-07-02 14:27 | NUR ---
dressing removed. orin clean and intact. no drainage noted. new aquacel dressing placed and spouse shown how to apply. 2 other dressings given to spouse for change at home. iv removed with tip intact. dressing applied
--- NOTE | 2020-07-02 14:45 | NUR ---
DISCHARGED TO HOME AMBULATORY WITH . DISCHARGE INSTRUCTIONS GIVEN BOTH VERBALLY AND WRITTEN. ALL QUESTIONS ANSWERED. PATIENT AND VERBALIZED UNDERSTANDING OF SAME. ALL BELONGINGS WITH PATIENT.
--- NOTE | 2020-07-03 09:19 | MORECARE ---
CASE MANAGEMENT DISCHARGE SUMMARY PATIENT: KADY UGARTE UNIT: [id number] ADM DATE: 07/01/20 AGE: 54 : 61 SEX: F ROOM/BED: D.1209 AUTHOR: CHARISSE,DOC PHYSICIAN: REFERRING PHYSICIAN: CATHIE OAKLEY MD DATE OF SERVICE: 07/03/20 Discharge Plan Patient Name: KADY UGARTE Facility: [facility]:[place] : 1965 Planned Disposition: Home with Home Health Anticipated Discharge Date: Discharge Date: 07/02/2020 Expected LOS: Initial Reviewer: [email or web address] Initial Review Date: 07/01/2020 Generated: 07/03/20 10:18 am DCP- Discharge Planning Updated by [email or web address]: Luli Palma on 07/02/20 1:[address] Patient Name: KADY UGARTE Admission Status: Elective Accout number: [id number] Admission Date: 07-01-2020 : 1965 Admission Diagnosis:PAIN DUE TO INTERNAL ORTHOPEDIC PROSTH DEV/GRFT, INIT Attending: CATHIE OAKLEY Current LOS: 1 Anticipated DC Date: Planned Disposition: Home with Home Health Primary Insurance: [facility] Discharge Planning Comments: CM met with patient to complete initial dc planning assessment. CM educated patient on the CM role and verbal consent given by patient to complete assessment. Patient lives at home with where she is independent with her care. At discharge patient plans to return home and feels this is a safe discharge. Reynaldo will be her pickup driver home today. CM discussed availability of home health, rehab services, and medical equipment. She stated that she has used [facility] in the past and would like to use them again. (PT DAVE) She has all of her DME. I will send clinical over to [facility] . Patient denied known discharge needs at this time. CM will continue to follow and will assist as needed with dc plans/needs. Regional Account Manager: Luli Palma DCPIA - Discharge Planning Initial Assessment Updated by [email or web address]: Luli Palma on 07/02/20 2:07 pm * Is the patient Alert and Oriented? Yes * How many steps to enter\exit or inside your home? RAMP * PCP SEARS * Pharmacy [facility] * Preadmission Environment Home with Family * ADLs Independent * Equipment Bedside Commode Cane Walker * List name and contact numbers for known caregivers / representatives who currently or will assist patient after discharge: REYNALDO UGARTE [phone] * Verbal permission to speak to the caregivers and representatives has been obtained from the patient. N/A * Community resources currently utilized None * Additional services required to return to the preadmission environment? Yes * Can the patient safely return to the preadmission environment? Yes * Has this patient been hospitalized within the prior 30 days at any hospital? No Coverage Notice Reviewer: [id number] Sarah Palma Notice Issued Date-Time: 07/02/2020 14:10 Notice Type: Patient Choice Letter Notice Delivered To: Patient Relationship to Patient: Polishing Pad Mounter Name: Delivery Method: PHONE - Phone Farzana Days: Prior Verbal Notification: Yes Recipient Understood Notice: Recipient Signature: Med Rec Note Co-signed by Attending: Coverage Notice Comment: jose raul with [facility] via phone Last DP export: 07/02/20 1:27 p Patient Name: KADY UGARTE Page 44493 at 0919 All edits/amendments must be made on the electronic document DICTATION DATE: 07/03/20917 GARBAGE PICK UP MAN: DAT 07/03/20917 RPT#: [id number] DC DATE:07/02/20 STATUS: DIS IN [facility] [address] [place] [address] END OF REPORT
== END 2020-07-02 14:47 | disposition home health service (06) | DRG 465 ==
LOC: D.SDCHOLD 06-26 10:00 → D.M3 07-01 07:20 → D.SDCHOLD 07-01 09:15 → D.M3 07-01 11:48 → D.SDCHOLD 07-01 13:30 → D.M3 07-02 14:47
PROVIDERS: ADMIT Orthopaedic Surgery; ATTEND Orthopaedic Surgery
PROC: 0SRD0MZ Replacement of Left Knee Joint with Lateral Unicondylar Synthetic Substitute, Open Approach (ICD-10-PCS; 2020-07-01)
PROC: 0SPD0MZ Removal of Lateral Unicondylar Synthetic Substitute from Left Knee Joint, Open Approach (ICD-10-PCS; principal; 2020-07-01 09:15)
DX: T84.84XA Pain due to internal orthopedic prosthetic devices, implants and grafts, initial encounter (principal); Y83.9 Surgical procedure, unspecified as the cause of abnormal reaction of the patient, or of later complication, without mention of misadventure at the time of the procedure; E11.40 Type 2 diabetes mellitus with diabetic neuropathy, unspecified

== ENCOUNTER 2021-02-10 10:45 | Outpatient (CLI) | payer OTHER ==
[2020-07-01 12:09] VITALS: BMI 28.4
[~2021-02-10 10:45] MED LIST changes: +CRESTOR10 MG PO; +GLUCOPHAGE500 MG PO
== END 2021-02-10 23:59 | disposition home or self-care (01) ==
LOC: D.MAMMO 10:45
PROVIDERS: ATTEND Family Medicine
DX: Z12.31 Encounter for screening mammogram for malignant neoplasm of breast (principal)